=== PATIENT | male | born 1980 | race Hispanic/Latino ===

== ENCOUNTER 2017-07-08 21:26 | Emergency (ER) | payer MEDICAID ==
[2017-07-08] MEDS ORDERED: ACETAMINOPHEN 325 MG TAB ONE (21:42)
== END 2017-07-08 21:52 | disposition home or self-care (01) ==
LOC: EDH 21:26
DX: J11.1 Influenza due to unidentified influenza virus with other respiratory manifestations (principal); R50.81 Fever presenting with conditions classified elsewhere; Z72.0 Tobacco use